=== PATIENT | female | born 1995 | race Caucasian/White ===

== ENCOUNTER → 2020-08-15 00:01 | Outpatient (BNVA) | payer OTHER, BC, SELFPAY | PROVIDERS: Family Provider Nurse Practitioner Family; PCP Registered Nurse; Visit Provider Nurse Practitioner Women's Health | DX: Z12.4 Encounter for screening for malignant neoplasm of cervix (principal); Z11.3 Encounter for screening for infections with a predominantly sexual mode of transmission; N92.1 Excessive and frequent menstruation with irregular cycle | CPT/HCPCS: 87491; 87591; 87661; 88175 ==